=== PATIENT | female | born 2000 | race American Indian/Alaskan Native ===

== ENCOUNTER 2021-02-04 10:56 | Emergency (ER) | payer OTHER ==
[2021-02-04 11:02] VITALS: BP 122/69
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
--- NOTE | 2021-02-04 12:47 | Cat Scan Report ---
. CT head/brain wo con INDICATION / CLINICAL INFORMATION: 20 years Female; headache. TECHNIQUE: Routine CT head without contrast. All CT scans at this location are performed using CT dos e reduction for ALARA by means of automated exposure control. COMPARISON: None. FINDINGS: BRAIN / INTRACRANIAL CONTENTS: No acute hemorrhage, mass effect, midline shift, hydrocephalus, or acu te, large territorial infarct. No signs of significant atrophy or chronic infarct. No significant whi te matter abnormality seen. CRANIOCERVICAL JUNCTION: No significant abnormality. ORBITS: No significant abnormality of visualized orbits. SINUSES / MASTOIDS: Partial opacification mastoids noted. Mild mucosal thickening seen in the ethmoid s. ADDITIONAL FINDINGS: None. IMPRESSION: 1. No focal mass, hemorrhage, hydrocephalus, or acute, large territorial infarct. Signer Name: Derek Myers MD, III Signed: 02/04/2021 12:43 PM Workstation Name: [id number]
== END 2021-02-04 13:31 | disposition home or self-care (01) ==
LOC: ED 10:56
DX: S00.03XA Contusion of scalp, initial encounter (principal); J45.909 Unspecified asthma, uncomplicated; Z79.899 Other long term (current) drug therapy; V49.49XA Driver injured in collision with other motor vehicles in traffic accident, initial encounter; Y93.89 Activity, other specified; Y92.488 Other paved roadways as the place of occurrence of the external cause; Y99.8 Other external cause status
CPT/HCPCS: 70450; 99283